=== PATIENT | female | born 1955 | race Caucasian/White ===

== ENCOUNTER 2022-01-29 08:43 | Day surgery (SDC) | payer OTHER, BC ==
[2022-01-21 10:04] VITALS: BMI 20.5
[2022-01-29] MEDS ORDERED: LIDOCAINE HCL 2% (20ML MULTI-DOSE VIAL) ONE (10:24)
[2022-01-29] MEDS ORDERED: MIDAZOLAM HCL 2 MG/2 ML SINGLE DOSE VIAL ONE (10:56)
[2022-01-29] MEDS ORDERED: PROPOFOL 20 ML ONE (10:57)
[2022-01-29] MEDS ORDERED: SUCCINYLCHOLINE CHLORIDE 200 MG/10 ML SYRINGE ONE (10:57)
[2022-01-29] MEDS ORDERED: oxyCODONE HCL 5 MG TABLET PO PRN (12:01)
[2022-01-29] MEDS ORDERED: ONDANSETRON 4 MG/2 ML VIAL IVPUSH PRN (12:01)
[2022-01-29] MEDS ORDERED: PROMETHAZINE HCL 25 MG/1 ML VIAL IVPUSH PRN (12:01)
[2022-01-29] MEDS ORDERED: LACTATED RINGERS SOLUTION 1,000 ML IV SCH (12:15)
[2022-01-29 13:08] VITALS: TEMP 96.2
[2022-01-29 13:11] VITALS: BP 108/56; PULSE 58
== END 2022-01-29 13:35 | disposition home or self-care (01) ==
LOC: FASU 08:43
PROVIDERS: ATTEND Orthopaedic Surgery
PROC: 0LN80ZZ Release Left Hand Tendon, Open Approach (ICD-10-PCS; principal; 2022-01-29 11:38)
DX: M65.332 Trigger finger, left middle finger (principal); M65.842 Other synovitis and tenosynovitis, left hand
CPT/HCPCS: 94760